=== PATIENT | female | born 1995 | race Caucasian/White ===

== ENCOUNTER 2023-01-19 07:43 | Day surgery (SDC) | payer OTHER, SELFPAY ==
[2023-01-19] VITALS (11 sets, daily range): BP systolic 106–141; BP diastolic 72–117; PULSE 67–100; RESP 16–20; TEMP 36.2–37.1; O2SAT 98–100; BMI 22.5
[2023-01-19] MEDS: LACTATED RINGERS 1000 ML 1,000 ML 100 ML IV (07:45)
[2023-01-19] MEDS: SODIUM CHLORIDE 0.9 % (FLUSH) 10 ML SYRINGE IVF (08:00)
[2023-01-19 08:04] LABS: Ur HCG Qualitative* Negative (Negative)
--- NOTE | 2023-01-19 09:36 | W.ANESCHARGE ---
Anesthesia Charges Start Date/Time Anesthesia Start Date: 01/19/23 Anesthesia Start Time: 09:02 Stop Date/Time Anesthesia Stop Date: 01/19/23 Anesthesia Stop Time: 09:35
--- NOTE | 2023-01-19 09:51 | W.ANESCHARGE ---
Anesthesia Charges Start Date/Time Anesthesia Start Date: 01/19/23 Anesthesia Start Time: 09:02 Stop Date/Time Anesthesia Stop Date: 01/19/23 Anesthesia Stop Time: 09:35
[2023-01-19] MEDS: fentaNYL 100 MCG/2 ML inj 50 MCG IVP (09:52)
--- NOTE | 2023-01-19 10:06 | SUR.PHASEI ---
patient met discharge criteria per anesthesia
[2023-01-19] MEDS: ACETAMINOPHEN 160 MG/5 ML CUP 320 MG PO (10:15)
[2023-01-19] MEDS: IBUPROFEN 100 MG/5 ML SUSP 200 MG PO (10:15)
[2023-01-19] MEDS: OXYCODONE 1 MG/ML ORAL SOLN 5 MG PO (11:09)
--- NOTE | 2023-01-19 12:16 | W.PM.ENTPROC ---
Procedure Note Date of procedure: 01/19/23 Procedure: Preoperative diagnosis chronic tonsillitis, adenotonsillar hypertrophy, upper airway obstruction, nasal obstruction Postoperative diagnosis same Procedure adenotonsillectomy Under general endotracheal anesthesia the patient was prepped and draped in usual fashion. The McIvor mouth gag was inserted the tongue retracted forward. No submucous cleft was noted on inspection or palpation. The right and left tonsils were removed with a combination of needlepoint cautery, bipolar cautery and suction cautery. Meticulous hemostasis was achieved. The adenoid pad was visualized with a laryngeal mirror and removed with suction cautery. The patient was extubated in the operating room taken recovery in satisfactory condition. Blood loss was less than 10 mL. Surgeon: Kolby Hudson MD
== END 2023-01-19 11:43 | disposition home or self-care (01) ==
PROVIDERS: PCP Family Medicine; Visit Provider Otolaryngology
PROC: (CPT 42821; principal; 2023-01-19 09:00)
DX: J35.01 Chronic tonsillitis (principal); J35.3 Hypertrophy of tonsils with hypertrophy of adenoids; J34.89 Other specified disorders of nose and nasal sinuses
CPT/HCPCS: 42821; 00170; 81025; 88304; A9270; J0330; J1100; J2250; J2405; J2704; J3010; J7120

== ENCOUNTER 2023-08-14 04:02 | Emergency (ER) | payer OTHER, SELFPAY ==
[2023-08-14 04:08] VITALS: BP 140/90; PULSE 100; RESP 16; TEMP 36.7; O2SAT 99; BMI 20.7
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
--- OUTSIDE RECORDS SUMMARY | 2023-08-14 04:32 | XMS_ITS | Clinical Summary ---
Author Name Unknown Organization [facility] Address [address], [place] [address] Care Team Providers Care Guide Plant Name Role Phone Unavailable Primary Care Provider Unavailabl e Source Comments You are receiving this document as you are listed as the primary care provider,follow-up provider, or the patient has been referred to you for consultation.This is in compliance with the Medicare andMedicaid EHR Incentive Program,which states Providers who transition their patient to another setting of careor provider of care or refers their patient to another provider of care shouldprovide summary care record for each transition of care or referral. [facility] Allergies No known active allergies Medications Medication Sig Dispensed Refills Start Date End Date Status amphetamine-dextroamphe tamine XR (ADDERALL XR) 20 MG 24 hour release capsule Take 20 mg by mouth every morning. 10/25/2021 Active escitalopram oxalate (LEXAPRO) 20 MG tablet Take 20 mg by mouth daily. 10/20/2021 Active metFORMIN (GLUCOPHAGE) 500 MG tablet Take 500 mg by mouth two times a day. 10/20/2021 Active magic mouthwash (lido/maalox/diphen 1:1:1) Swish and spit in mouth two times a day. Swish and spit 5 mL. 240 mL 11/09/2021 Active Active Problems No known active problems Encounters Date Type Department Care Team Description 05/21/2023 jeanette Blackburn [phone] from Last 3 Months Social History Tobacco Use Types Packs/Day Years Used Date Smoking Tobacco: Some Days Cigarettes Smokeless Tobacco: Never Tobacco Cessation:Ready to Q uit: Not Asked; Counseling Given: Not Answered Sex and Gender Information Value Date Recorded Sex Assigned at Not on file Gender Identity Not on file Sexual Orientation Not on file Last Filed Vital Signs Vital Sign Reading Time Taken Comments Blood Pressure 118/72 11/09/2021 8:14 AM CDT Pulse 86 11/09/2021 8:14 AM CDT Temperature 37.3 ??C (99.1 ??F) 11/09/2021 8:14 AM CD T Respiratory Rate 16 11/09/2021 8:14 AM CDT Oxygen Saturation 98% 11/09/2021 8:14 AM CDT Inhaled Oxygen Concentration - - Weight - - Height - - Body Mass Index - - Plan of Treatment Health Maintenance Due Date Last Done Comments Cervical Cancer Screening Due 1996 Hep C Screening (Preventive Services) 1996 Pneumococcal (1 - PCV) 2002 HIV Screening (Preventive Services) 2012 Adult Preventive Visit 2014 HepB (1) 09/27/2015 COVID-19 Vaccine (3 - season) 2022 01/18/2021, 12/28/2020 Influenza (#1) 2022 04/08/2021, 12/2019, 02/07/2019, Additional history exists DTaP/Tdap/Td (7 - Tdap) 02/22/2027 02/23/20 17, 12/25/2008, 03/25/2001, Additional history exists Zoster/Shingles (1 of 2) 2046 IPV (Polio) Completed 03/25/2001, 03/01, 03/24/1997, Additional history exists HPV Vaccine Completed 08/04/2009, 08/2008, 12/25/2008 HepA Aged Out 03/22/2016 No longer eligi ble based on patient's age to complete this topic MCV4 Aged Out 03/22/2016, 12/25/2008 No lo nger eligible based on patient's age to complete this topic Hib Aged Out No longer eligi ble based on patient's age to complete this topic (Mqbw) [id number] [place] [address]
--- OUTSIDE RECORDS SUMMARY | 2023-08-14 04:32 | XMS_ITS | Clinical Summary ---
Author Name Unknown Organization [facility] Address [address] [place] [id number] Care Team Providers Care Sales And Distribution Clerk Name Role Phone Ebony Sams MD Primary Care Provider Allergies Active Allergy Reactions Criticality Noted Date Comments No Known Drug Allergy 09/08/2003 Medications Medication Sig Dispensed Refills Start Date End Date Status AMOXICILLIN 400 MG OR CHEWIndications:Acute suppurative otitis media without spontaneous rupture of eardrum 2 tabs po BID x10 days 40 0 07/18/2004 Active Immunizations Name Administration Dates Next Due DTAP (<7y) 03/25/2001 Influenza (IIV3) PF 02/23/2007 MMR 03/25/2001 Poliovirus, inactivated (IPV) 03/25/2001 Family History Medical History Relation Comments Diabetes Maternal Grandfather Great Grand father Type II Relation Status Comments Maternal Grandfather Social History Tobacco Use Types Packs/Day Years Used Date Smoking Tobacco: Never Alcohol Use Standard Drinks/Week Comments No 0 (1 standard drink = 0.6 oz pur e alcohol) Adolescent Education Answer Date Record ed Getting School Help Needed Not on file 02/13 Sex and Gender Information Value Date Recorded Sex Assigned at Not on file Gender Identity Not on file Sexual Orientation Not on file Last Filed Vital Signs Vital Sign Reading Time Taken Comments Blood Pressure 112/69 08/12/2021 4:30 AM CDT Pulse 75 08/12/2021 4:30 AM CDT Temperature 36.9 ??C (98.4 ??F) 08/12/2021 4:30 AM CD T Respiratory Rate 18 08/12/2021 7:24 AM CDT Oxygen Saturation 99% 08/12/2021 4:30 AM CDT Inhaled Oxygen Concentration - - Weight 25.9 kg (57 lb) 07/18/2004 4:00 PM UM RN Height - - Body Mass Index - - Plan of Treatment Health Maintenance Due Date Last Done Comments ADVANCE CARE PLANNING 1996 ANNUAL REVIEW OF HM ORDERS 1996 YEARLY PREVENTIVE VISIT 1996 HIV SCREENING 09/27/2011 HEPATITIS C SCREENING 2014 PAP 2017 COVID-19 Vaccine ( season) 2022 01/18/2021, 12/28/2020 INFLUENZA VACCINE (#1) 2022 , 01/07/2020, 02/07/2019, Additional history exists PHQ-2 (once per calendar year) 2023 DTAP/TDAP/TD IMMUNIZATION (7 - Td or Tdap) 02/22/2027 02/22/2017, 12/25/2008, 03/25/2001, Additional history exists HEPATITIS B IMMUNIZATION Completed 997, 1996, 1996 IPV IMMUNIZATION Completed 03/25/2001, , 03/24/1997, Additional history exists HPV IMMUNIZATION Completed 08/04/2009, 08/2008, 12/25/2008 MENINGITIS IMMUNIZATION Aged Out 03/22/2016, 12/25 No longer eligible based on patient's age to complete this topic Pneumococcal Vaccine: Pediatrics (0 to 5 Years) and At-Risk Patients (6 to 64 Years) Aged Out No longer eligible based on patient's age to complete this topic RSV MONOCLONAL ANTIBODY Aged Out No l onger eligible based on patient's age to complete this topic Care Teams Sales And Distribution Clerk Relationship Specialty Start Date End Date Ebony Sams MD PCP - General 09/08/03
--- OUTSIDE RECORDS SUMMARY | 2023-08-14 04:32 | XMS_ITS | Encounter Summary ---
Author Name Unknown Organization [facility] Address [address] [place] [address] Care Team Providers Care Lens Blank Gauger Name Role Phone Ebony Sams MD Primary Care Provider Encounter Details Date Type Department Care Team (Late st Contact Info) Description 08/12/2021 Documentation Only INTERFACED REPORT Unknown, Provider Social History Tobacco Use Types Packs/Day Years Used Date Smoking Tobacco: Never Alcohol Use Standard Drinks/Week Comments No 0 (1 standard drink = 0.6 oz pur e alcohol) Sex and Gender Information Value Date Recorded Sex Assigned at Not on file Gender Identity Not on file Sexual Orientation Not on file documented as of this encounter Plan of Treatment Not on file documented as of this encounter Visit Diagnoses Not on filedocumented in this encounter Care Teams Lens Blank Gauger Relationship Specialty Start Date End Date Ebony Sams MD PCP - General 09/08/03 documented as of this encounter
--- OUTSIDE RECORDS SUMMARY | 2023-08-14 04:32 | XMS_ITS | Referral Summary ---
Author Name Unknown Organization [facility] Address [address] [place] [address] Care Team Providers Care Category Manager Name Role Phone Ebony Sams MD Primary [...] 02/23/2007 MMR 03/25/2001 Poliovirus, inactivated (IPV) 03/25/2001 Social History Tobacco Use Types Packs/Day Years [...] 25.9 kg (57 lb) 07/18/2004 4:00 PM DENTAL PATIENT COORDINATOR Height - - Body Mass Index - - Plan of Treatment Not on file Care Teams Category Manager Relationship Specialty Start Date End Date Ebony Sams MD PCP - General 09/08/03
--- OUTSIDE RECORDS SUMMARY | 2023-08-14 04:32 | XMS_ITS | Encounter Summary ---
Author Name Unknown Organization [facility] Address [address] [address] Care Team Providers Care Senior Salesforce Developer Name Role Phone Unavailable Primary Care Provider Unavailabl e Encounter Details Date Type Department Care Team (Late st Contact Info) Description 05/21/2023 francoise Blackburn [phone] Social History Tobacco Use Types Packs/Day Years Used Date Smoking Tobacco: Some Days Cigarettes Smokeless Tobacco: Never Sex and Gender Information Value Date Recorded Sex Assigned at Not on file Gender Identity Not on file Sexual Orientation Not on file documented as of this encounter Progress Notes * FAMILY MEDICINEFRANCOISE PROVIDER - 05/21/2023 9:22 PM CST Francoise Treatment Plan Diagnosis Urinary Tract Infection Visit Date May 21, 2023 Betsy Zhang Date of : 89 Provider Patricia Howe, Nurse Practitioner Note From Provider Cameron Meyer, I?? sorry to hear that you're having symptoms of a bladder infection.'ve sent a prescription for an antibiotic and an anti-fungal to your pharmacy. Take the antibiotic with a full meal twice a day and remember to drink lots of fluids. Only take the fluconazole if you develop symptoms of a yeast infection, taking it before you have symptoms will not prevent a yeast infection from happening. If you develop yeast infection symptoms take 1 tablet of fluconazole, if you continue to have symptoms 3 days after taking the first tablet, take the second tablet. We are here for you for any questions or concerns along the way, just submit a Follow Up Request. Feel better soon! MIHAELA Gomez Treatment Plan Because you have a bacterial infection, I sent a prescription for an antibiotic to [facility]. I also listed a few ways to soothe your discomfort and additional self-care tips toget you on the road to feeling better. If your symptoms don't start to improve after 3 days, or if you have questions, please select Help to Request a Follow-up and we'll discuss next steps. Order(s) nitrofurantoin monohyd/m-cryst 100 mg capsule Take 1 capsule by mouth every twelve hours as directed for 5 days Note: Take with food to improve absorption. Refills: None fluconazole 150 mg tablet Take 1 tablet by mouth single dose as directed Note: Repeat in 3 days if symptoms persist Refills: None Sent To: [facility] [address] [place] [address], [place] [address] Treatment Plan Self Care Tip Topics Drink Water Avoid Caffeine Warm Packs Yeast Infection Prescription What to Expect If you follow the recommendations I made on the Treatment tab, your symptoms should start to improve in about 3 days. If your symptoms don't start to improve after 3 days, or if you have questions, please select Help to Request a Follow- up and we'll help determine next steps. What to Watch Out For Follow-up in clinic if you experience: ??? Fever higher than 99.9 degrees ??? Shaking or chills ??? Vomiting ??? Severe pain in your back, abdomen or pelvis ??? Extreme fatigue My Conditions, Orders, Allergies as of May 21, 2023 Standard condition list ADHD (Attention Deficit Hyperactivity Disorder) Anxiety Depression Current orders fluconazole (fluconazole) nitrofurantoin monohyd/m-cryst (nitrofurantoin monohyd/m-cryst) Lexapro (escitalopram oxalate) Adderall XR (dextroamphetamine-amphetamine) Allergies None Virool Information [facility] [employer] We are an online clinic open 20/11. If you have any questions or comments about this visit, please call or email [email or web address]. BING DESIGNER documented in this encounter Plan of Treatment Not on file documented as of this encounter Visit Diagnoses Diagnosis Urinary tract infection, site not specified documented in this encounter
== END 2023-08-14 04:47 | disposition home or self-care (01) ==
PROVIDERS: Emergency Provider Family Medicine; PCP Family Medicine
DX: L03.115 Cellulitis of right lower limb (principal)
CPT/HCPCS: 87070; 87186; 99283; 99284

== ENCOUNTER 2024-01-31 12:56 | Outpatient (CLI) | payer OTHER, SELFPAY ==
--- OUTSIDE RECORDS SUMMARY | 2024-02-01 08:42 | XMS_ITS | Encounter Summary ---
Author Organization [facility] Address [address] [place] [address] Care Team Providers Care Cda Teacher Name Role Phone Ebony Sams MD Primary [...] on filedocumented in this encounter Care Teams Cda Teacher Relationship Specialty Start Date End Date Ebony Sams MD PCP - General 09/08/03 documented as of this encounter
--- OUTSIDE RECORDS SUMMARY | 2024-02-01 08:42 | XMS_ITS | Clinical Summary ---
Author Organization [facility] Address [address], [place] [address] Care Team Providers Care Special Assemblies Supervisor Name Role Phone Unavailable Primary Care Provider [...] for each transition of care or referral. [facility] Allergies No known active allergies Medications Medication [...] Active Active Problems No known active problems Social History Tobacco Use Types Packs/Day Years [...] Visit 2014 HepB (1) 09/27/2015 COVID-19 Vaccine ( season) 2023 01/18/2021, 12/28/2020 Influenza (#1) 2023 04/08/2021, 12/2019, 02/07/2019, Additional history exists DTaP/Tdap/Td [...]
--- OUTSIDE RECORDS SUMMARY | 2024-02-01 08:42 | XMS_ITS | Clinical Summary ---
Author Organization [facility] Address [address] [place] [address] Care Team Providers Care Station Engineer Name Role Phone Ebony Sams MD Primary [...] 25.9 kg (57 lb) 07/18/2004 4:00 PM CALL CENTER SPECIALIST Height - - Body Mass Index - - Plan of Treatment Health Maintenance Due Date Last Done Comments ADVANCE CARE PLANNING 1996 ANNUAL REVIEW OF HM ORDERS 1996 YEARLY PREVENTIVE VISIT 1996 HIV SCREENING 09/27/2011 HEPATITIS C SCREENING 2014 PAP 2017 COVID-19 Vaccine ( season) 2022 01/18/2021, 12/28/2020 PHQ-2 (once per calendar year) 2023 INFLUENZA VACCINE (#1) 2023 , 01/07/2020, 02/07/2019, Additional history exists DTAP/TDAP/TD IMMUNIZATION (7 - Td or Tdap) 02/22/2027 02/22/2017, 12/25/2008, 03/25/2001, Additional history exists HEPATITIS B IMMUNIZATION Completed 997, 1996, 1996 HPV IMMUNIZATION Completed 08/04/2009, 08/2008, 12/25/2008 MENINGITIS [...] age to complete this topic Care Teams Station Engineer Relationship Specialty Start Date End Date Ebony Sams MD [facility] - General 09/08/03
--- OUTSIDE RECORDS SUMMARY | 2024-02-01 08:42 | XMS_ITS | Referral Summary ---
Author Organization [facility] Address [address] [place] [address] Care Team Providers Care Transitional Care Liaison Name Role Phone Ebony Sams MD Primary [...] 25.9 kg (57 lb) 07/18/2004 4:00 PM CABINET AND TRIM INSTALLER Height - - Body Mass Index - - Plan of Treatment Not on file Care Teams Transitional Care Liaison Relationship Specialty Start Date End Date Ebony Sams MD PCP - General 09/08/03
== END 2024-01-31 12:57 | disposition home or self-care (01) ==
LOC: NFLDREF 02-01 08:40
PROVIDERS: PCP Family Medicine; Referring Provider Family Medicine; Visit Provider Family Medicine
DX: R30.0 Dysuria (principal); N39.0 Urinary tract infection, site not specified; F90.9 Attention-deficit hyperactivity disorder, unspecified type
CPT/HCPCS: 87086

== ENCOUNTER 2024-10-16 09:26 | Outpatient (CLI) | payer OTHER, SELFPAY ==
[2024-10-18 02:29] LABS: HPV Source Cervix; HPV, High Risk by TMA Not Detected
== END 2024-10-16 09:27 | disposition home or self-care (01) ==
PROVIDERS: PCP Family Medicine; Visit Provider Registered Nurse
DX: Z30.433 Encounter for removal and reinsertion of intrauterine contraceptive device (principal)
CPT/HCPCS: 87624; 87625; 88141; 88142